=== PATIENT | male | born 1955 | race African-American/Black ===

== ENCOUNTER 2020-09-16 20:43 | Emergency (ER) | payer BC ==
[~2020-09-16] VITALS: Ht 177.8 cm; Wt 63.5 kg
[2020-09-16] MEDS ORDERED: NOVOLOG100 UNIT/4 SQ (20:49)
[2020-09-16 20:50] VITALS: BP 128/84
--- NOTE | 2020-09-16 20:50 | NUR ---
ED Nurse Note: Pt BIBA RA 66 from [facility], per report pt has 1 emesis episode with dizziness, EMS blood sugar 300. Pt reports history of DM and mmissed insulin dose today. pt denies current dizzyness, blurry vision. Pt is AAOx4, breathing even and unlabored, vital signs stable.
--- NOTE | 2020-09-16 20:59 | Emergency Room Report ---
History of Present Illness General Chief Complaint: Dizziness Source: Patient, EMS Present Illness HPI Patient brought in by EMS for dizziness and vomiting. He was able to drink some Gatorade just before. Usually feels this way when his blood sugar is low. Accu-Chek in the field was 300. EKG was normal. The patient after vomiting feels better at this time. The patient states he did not take his insulin this morning. Usually takes Lantus in the morning. No blood in the vomitus or coffee grounds. He poorly describes the dizziness but denies loss of consciousness. The patient states his had episode like this when his blood sugars have been low. He also reports that he has had recent evaluation of his heart with echocardiogram and several other evaluations including colonoscopy. The patient denies exposure to Covid positive contacts. No fevers, chills, sore throat, chest pain, palpitations, diarrhea, dysuria, abdominal pain, shortness of breath, joint pain, rashes, depression, anxiety, visual changes, headache. 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 Patient History Past Medical History: see triage record Social History Narrative From [facility] Past Medical History: No History, Except For Hx Diabetes: Yes Review of Systems All Other Systems: negative except mentioned in HPI Physical Exam Vital Signs Date Time Temp Pulse Resp B/P (MAP) Pulse Ox O2 Delivery O2 Flow Rate FiO2 09/16/20 20:45 98.2 69 13 130/90 (103) 100 Room Air Sp02 EP Interpretation: reviewed, normal General Appearance: well appearing, no apparent distress, GCS 15 Head: normocephalic Eyes: bilateral eye normal inspection, bilateral eye PERRL, bilateral eye EOMI ENT: moist mucus membranes, other - Vomitus is nonbloody or coffee-ground Neck: supple Respiratory: lungs clear, normal breath sounds Cardiovascular #1: regular rate, rhythm Cardiovascular #2: 2+ radial (R) Gastrointestinal: normal inspection, normal bowel sounds, non tender, no mass, non-distended Musculoskeletal: back normal, normal range of motion, gait/station normal Neurologic: alert, motor strength/tone normal, 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 In addition blood glucose is 300. Differential includes diabetic ketoacidosis, acute myocardial infarction, electrolyte imbalance, vertigo, TIA (posterior) amongst others. Patient evaluated with EKG, chest x-ray and labs. IV hydration ordered as the patient is hyperglycemic. Repeat Accu-Cheks indicated. Patient refuses all work-up. He says he feels better and has recently had evaluations by his own doctors. He does not feel that he is in any danger at this time even though I told him that we need to exclude unstable angina and other serious complications of uncontrolled diabetes. He does not believe these risks. He is insisting on going home as he feels better. Patient signed out AGAINST MEDICAL ADVICE. Rhythm Strip Diag. Results EP Interpretation: yes Rhythm: NSR, no PVC's, no ectopy Last Vital Signs Date Time Temp Pulse Resp B/P (MAP) Pulse Ox O2 Delivery O2 Flow Rate FiO2 09/16/20 20:50 72 14 Room Air 09/16/20 20:50 98.2 128/84 100 Status: improved Disposition: AGAINST MEDICAL ADVICE Condition: Serious Referrals: NOT CHOSEN IPA/,REFERRING (PCP) Stephon Durant MD Sep 16, 2020 20:59
--- NOTE | 2020-09-16 21:00 | NUR ---
ED Nurse Note: DACIA Durant aware pt refusing blood draw, pt stated he would like to speak with ED, pt saying he wants to go home.
--- NOTE | 2020-09-16 21:15 | NUR ---
AMA: SEE AMA FORM. Pt spoke with EDMD, refuses treatment. States he does not want blood draw and would like to go home. AMA form signed. Pt accompanied to waiting room. Pt called taxi.
== END 2020-09-16 21:15 | disposition left against medical advice (07) ==
LOC: EDBD 20:43 → EMR 20:57
DX: E11.65 Type 2 diabetes mellitus with hyperglycemia (principal); R42 Dizziness and giddiness; R11.2 Nausea with vomiting, unspecified
CPT/HCPCS: 99283